=== PATIENT | male | born 1950 | race Caucasian/White ===

== ENCOUNTER 2017-09-08 19:32 | Inpatient (IN) | payer MEDICARE, BC ==
[~2017-09-08] VITALS: Ht 182.9 cm; Wt 90.8 kg
[2017-09-08 21:15] VITALS: BP 132/74; PULSE 82; RESP 18
[2017-09-08 22:00] VITALS: Ht 182.9 cm; Wt 90.8 kg
[2017-09-08] MEDS ORDERED: MAGNESIUM HYDROXIDE 30ML CUP PO PRN (23:45)
[2017-09-08] MEDS ORDERED: LACTULOSE 30ML CUP PO PRN (23:45)
[2017-09-08] MEDS ORDERED: ALPRAZOLAM 0.5 MG TAB PO PRN (23:45)
[2017-09-08] MEDS ORDERED: ALBUTEROL HFA 8 GM INHALER INH PRN (23:45)
[2017-09-08] MEDS ORDERED: BISACODYL 10 MG SUPP PR PRN (23:45)
[2017-09-09 01:34] LABS: ADD UMIC NO; UR AMORPHOUS CRYSTAL FEW /HPF (NONE SEEN); UR ASCORBIC ACID NEGATIVE (NEGATIVE); UR BILIRUBIN (Dip) NEGATIVE (NEGATIVE); UR BLOOD (Dip) NEGATIVE (NEGATIVE); UR CLARITY SLIGHTLY CLOUDY (CLEAR); UR COLOR YELLOW (YELLOW); UR GLUCOSE (Dip) NEGATIVE (NEGATIVE); UR KETONES (Dip) NEGATIVE (NEGATIVE); UR LEUKOCYTE ESTERASE (Dip) NEGATIVE Leu/ul (NEGATIVE); UR NITRITE (Dip) NEGATIVE (NEGATIVE); UR RBC 0 /HPF (0-5); UR SPECIFIC GRAVITY (Dip) 1.014 (1.003-1.030); UR SQUAMOUS EPITHELIAL CELL FEW /HPF (FEW); UR TOTAL PROTEIN (Dip) NEGATIVE (NEGATIVE); UR UROBILINOGEN (Dip) NEGATIVE (NEGATIVE)
[2017-09-09 02:00] VITALS: BP 135/75; RESP 18
[2017-09-09 07:00] VITALS: BP 121/70; RESP 18
[2017-09-09 07:34] LABS: BASOPHILS % 0.2 % (0.0-2.0); EOSINOPHILS # 0.2 10^3/ul (0.0-0.5); EOSINOPHILS % 3.7 % (0.0-7.0); HEMATOCRIT 25.7 % (42.0-52.0); HEMOGLOBIN 8.4 g/dl (14.0-18.0); LYMPHOCYTES # 0.7 10^3/ul (0.8-2.9); LYMPHOCYTES % 16.7 % (15.0-51.0); MEAN CORPUSCULAR HEMOGLOBIN 29.7 pg (29.0-33.0); MEAN CORPUSCULAR HGB CONC 32.7 g/dl (32.0-37.0); MEAN CORPUSCULAR VOLUME 90.8 fl (82.0-101.0); MEAN PLATELET VOLUME 10.6 fl (7.4-10.4); MONOCYTE # 0.3 10^3/ul (0.3-0.9); MONOCYTES % 8.5 % (0.0-11.0); NEUTROPHIL # 2.8 10^3/ul (1.6-7.5); NEUTROPHILS % 70.4 % (39.0-77.0); PLATELET COUNT 168 10^3/UL (140-415); RED BLOOD COUNT 2.83 10^6/ul (4.70-6.10); RED CELL DISTRIBUTION WIDTH 13.3 % (11.5-14.5)
[2017-09-09 07:53] LABS: ALBUMIN 2.9 g/dl (3.3-4.9); ALBUMIN/GLOBULIN RATIO 0.96; BILIRUBIN,INDIRECT 0.5 mg/dl (0-1.1); BILIRUBIN,TOTAL 0.5 mg/dl (0.2-1.3); CALCIUM 8.3 mg/dl (8.4-10.2); CREATININE 1.03 mg/dl (0.61-1.24); TOTAL PROTEIN 5.9 g/dl (6.1-8.1)
[2017-09-09] MEDS ORDERED: BENICAR PO SCH (09:00)
[2017-09-09] MEDS: DOCUSATE SODIUM 100 MG CAP PO SCH ×2 (09:17→21:00)
[2017-09-09] MEDS: FERROUS SULFATE (EC) 325 MG TAB PO SCH (09:18)
[2017-09-09] MEDS ORDERED: VILANTEROL INH SCH (11:00)
[2017-09-09] MEDS ORDERED: FLUTICASONE FUROATE INH SCH (11:00)
[2017-09-09] MEDS: LOSARTAN 50 MG TAB PO SCH (12:43)
[2017-09-09] MEDS: HYDROCHLOROTHIAZIDE 12.5 MG CAP PO SCH (12:43)
[2017-09-09] MEDS: BALSAM PERU/CASTOR OIL 60 GM TUBE TOP SCH ×2 (12:43→21:24)
--- NOTE | 2017-09-09 12:53 | CONS ---
DATE OF ADMISSION: 09/08/2017 DATE OF CONSULTATION: 09/09/2017 TYPE OF CONSULTATION: Rehabilitation post-admission physician evaluation. REHABILITATION IMPAIRMENT CATEGORY: Orthopedic disorder with lumbar spondylolisthesis and radiculop athy, status post laminectomy and fusion. ACTIVE COMORBIDITIES: 1. Bilateral rotator cuff injuries. 2. History of bilateral carpal tunnel syndrome. 3. History of left elbow surgery. 4. History of multiple left knee surgeries. 5. Hypertension. 6. Anemia. 7. Asthma. 8. Gluteal decubitus ulcer. 9. Impairments in self-care and mobility. HISTORY OF PRESENT ILLNESS: The patient is a 66-year-old gentleman with a history of multiple medi chasity comorbidities who had been noting increasing radiating back pain despite conservative measures. The patient did undergo decompressive lumbar laminectomy and fusion on 09/03/2017. His postoperati ve course has been notable for anemia requiring transfusion, and significant impairments in self-car e and mobility as compared to baseline. The patient has been cleared to transfer to the rehabilitat ion unit for comprehensive interdisciplinary rehab care. FUNCTIONAL HISTORY: Prior to recent events, the patient was independent in self-care tasks and mobi lity. Currently, patient requires minimal to moderate assist for self-care and mobility tasks. I have reviewed the preadmission screen and the patient's current functional status is consistent wi th the preadmission screen. SOCIAL HISTORY: The patient reports living at home and hopes to return there upon discharge. PAST MEDICAL HISTORY: 1. Degenerative joint disease affecting multiple joints. 2. History of bilateral rotator cuff injuries with surgery. 3. History of bilateral carpal tunnel syndrome. 4. History of left elbow surgery. 5. History of multiple left knee surgeries. 6. Hypertension. 7. Asthma. CURRENT MEDICATIONS: 1. Albuterol inhaler. 2. Ferrous sulfate 325 p.o. every day. 3. Xanax p.r.n. 4. Ultram p.r.n. ALLERGIES 1. MORPHINE. 2. DILAUDID. 3. SULFA. PHYSICAL EXAMINATION: VITAL SIGNS: The patient is currently afebrile with stable vital signs. HEENT: Extraocular motions intact. Oropharynx clear. NECK: Supple. LUNGS: Clear anteriorly. CARDIAC: S1, S2. ABDOMEN: Soft, nontender, positive bowel sounds. NEUROLOGIC: He is awake, alert, oriented x3, can follow simple 1-step commands. Cranial nerves are grossly intact. He has good strength in bilateral upper extremity and antigravity strength in bila teral lower extremity. He does have impaired dynamic balance. PLAN: The patient has been admitted for comprehensive interdisciplinary acute rehab and is anticipa mariana to tolerate 3 hours of daily therapy in divided doses for at least 5/7 days a week. The treatme nt plan will include: 1. Physical therapy to focus on bed mobility, transfers, and household ambulation with the goal of having the patient reach standby assist level. 2. Occupational therapy to focus on hygiene, grooming, dressing, bathing, and toileting activities with goal of having patient reach standby assist level. 3. Rehabilitation nursing for carryover of therapeutic interventions, the goal of continent of arun l and bladder, and the goal of pain adequately managed on oral medications. REHABILITATION BARRIER: Pain. INTERVENTION FOR BARRIER: Comprehensive interdisciplinary approach. ESTIMATED LENGTH OF STAY: 10 days. DISPOSITION GOAL: Home. I acknowledge that I performed a full physical examination on this patient within 24 hours of admiss ion to the rehabilitation unit and believe the patient is a good candidate for comprehensive interdi sciplinary rehab care and is anticipated to make reasonable goals in a reasonable period of time as outlined above. Dictated By: LIVIA DERAS/JESSICA Conf#: [id number] DID#: [id number]
[2017-09-09 20:00] VITALS: BP 123/59; RESP 18
[2017-09-09] MEDS: SENNA TAB PO SCH (21:00)
[2017-09-09] MEDS: ACETAMINOPHEN 325 MG TAB PO PRN (21:54)
[2017-09-09] MEDS ORDERED: PENDING SANTYL ORDER FOR WOUND CARE XX PRN (22:00)
[2017-09-10 02:00] VITALS: BP 127/59; RESP 18
[2017-09-10 07:30] VITALS: BP 110/71; RESP 18
[2017-09-10] MEDS ORDERED: INFLUENZA VIRUS VACCINE 0.5 ML (DISPENSING) IM* ONE (09:00)
[2017-09-10] MEDS: DOCUSATE SODIUM 100 MG CAP PO SCH ×2 (09:00→20:51)
[2017-09-10] MEDS: VILANTEROL INH SCH (09:00)
[2017-09-10] MEDS: FLUTICASONE FUROATE INH SCH (09:00)
[2017-09-10] MEDS: FERROUS SULFATE (EC) 325 MG TAB PO SCH (10:12)
[2017-09-10] MEDS: HYDROCHLOROTHIAZIDE 12.5 MG CAP PO SCH (10:21)
[2017-09-10] MEDS: LOSARTAN 50 MG TAB PO SCH (10:22)
--- NOTE | 2017-09-10 11:35 | CONS ---
Date/Time of Note Date/Time of Note DATE: 09/10/17 TIME: 11:34 Consult Date/Type/Reason Admit Date/Time Sep 08, 2017 at 20:43 Initial Consult Date Subjective Patient comfortable Objective Min assist Vital Signs Date Time Temp Pulse Resp B/P Pulse Ox O2 Delivery O2 Flow Rate FiO2 09/10/17 07:30 98.5 85 18 110/71 100 09/08/17 21:15 Room Air Intake and Output 09/09/17 09/09/17 09/10/17 15:00 23:00 07:00 Intake Total 750 ml 1200 ml 800 ml Output Total 1000 ml Balance 750 ml 200 ml 800 ml Results/Medications Result Diagram: 09/09/17 0642 09/09/17 0641 Medications Current Medications Tramadol HCl (Ultram) 50 mg Q6H PRN PO PAIN; Start 09/08/17 at 23:45 Alprazolam (Xanax) 0.5 mg Q6H PRN PO ANXIETY; Start 09/08/17 at 23:45 Ferrous Sulfate (Ferrous Sulfate (Ec)) 325 mg DAILY PO Last administered on 10:12; Admin Dose 325 MG; Start 09/09/17 at 09:00 Clonidine (Catapres) 0.1 mg BID PO Last administered on 09/09/17 21:23; Admin Dose 0.1 MG; Start 09/08/17 at 23:45 Docusate Sodium (Colace) 100 mg BID PO Last administered on 09/09/17 09:17; Admin Dose 100 MG; Start 09/09/17 at 09:00 Senna (Senokot) 1 tab HS PO ; Start 09/09/17 at 21:00 Acetaminophen (Tylenol Tab) 650 mg Q4H PRN PO PAIN Last administered on 21:54; Admin Dose 650 MG; Start 09/08/17 at 23:45 Bisacodyl (Dulcolax Supp) 10 mg DAILY PRN [place] CONSTIPATION; Start 09/08/17 at 23:45 Magnesium Hydroxide (Milk Of Mag) 30 ml BID PRN PO CONSTIPATION; Start at 23:45 Lactulose (Enulose) 20 gm DAILY PRN PO CONSTIPATION; Start 09/08/17 at 23:45 Losartan Potassium (Cozaar) 100 mg DAILY PO Last administered on 09/10/17 10: 22; Admin Dose 100 MG; Start 09/09/17 at 10:00 Hydrochlorothiazide (Hydrochlorothiazide) 12.5 mg DAILY PO Last administered on 09/10/17 10:21; Admin Dose 12.5 MG; Start 09/09/17 at 10:00 Non-Formulary Medication 1 ea Q48H INH ; Start 09/10/17 at 09:00 Miscellaneous Information (Pending [facility] Order For Wound Care) This patient watkins... PRN PRN XX WOUND CARE; Start 09/09/17 at 22:00 Assessment/Plan Additional Assessment/Plan Rehabilitation -orthopedic disorder with lumbar spondylolisthesis and radiculopathy, status post laminectomy and fusion. Continue current rehabilitative treatment plan Bilateral rotator cuff injuries. History of bilateral carpal tunnel syndrome. History of left elbow surgery. History of multiple left knee surgeries. Hypertension. Anemia. Asthma. Gluteal decubitus ulcer. LIVIA HERZOG MD Sep 10, 2017 11:35
--- NOTE | 2017-09-10 13:43 | HP ---
DATE OF ADMISSION: 09/08/2017 CHIEF COMPLAINT: Status post laminectomy, lumbar. HISTORY OF PRESENT ILLNESS: This is a 66-year-old male, retired dining service worker with past medical history of hypertension, history of asthma, history of osteoarthritis with multiple surgeries on his knees and shoulders and wrist who was admitted to an outside hospital for an L3 to S1 laminectomy and fusi on. The patient continued to have chronic lower back pain with sciatic pain and radiculopathy for m any years. The patient states his pain and symptoms started to progressively get worse. The patien t failed conservative management and as a result underwent surgical intervention for neurogenic oleg dication. The patient underwent L3 to S1 laminectomy with fusion by . Postoperatively, th e patient did receive due to blood loss. The patient, however, had a significant decline in his pre morbid state. As a result, he was transferred to [facility] for acute rehab. On my evaluation of the patient at this time, he is currently stable. Denies any fevers, chills, na usea, vomiting. The patient states his current pain is under control. PAST MEDICAL HISTORY: As stated above, history of hypertension, asthma. PAST SURGICAL HISTORY: Status post multiple surgeries on his shoulder for rotator cuff tear. The p atient is status post carpal tunnel release, status post left elbow surgery, status post left knee s urgery. FAMILY HISTORY: Noncontributory. SOCIAL HISTORY: Does not smoke, drink or do drugs. MEDICATION: Reviewed and reconciled. ALLERGIES: PLEASE SEE LIST. REVIEW OF SYSTEMS: A 14-point review of systems was performed. Pertinent positives stated in HPI, otherwise negative. PHYSICAL EXAMINATION: VITAL SIGNS: Blood pressure is 110/71, respiration 18, pulse 85, temperature 98.5. HEENT: Head is normocephalic. Pupils are reactive to light. NECK: Supple. HEART: Regular rate. LUNGS: Show diminished breath sounds at the base. ABDOMEN: Soft, nontender to palpation. No rebound, guarding. EXTREMITIES: Negative for clubbing, cyanosis, no edema. DERMATOLOGIC: No rashes. MUSCULOSKELETAL: The patient has a noted wound on his back with dressing clean, dry, intact. NEUROLOGIC: No focal deficits, although patient has some general weakness. LABORATORY DATA: From 09/09/2017 shows sodium 145, potassium 4.0, BUN 14, creatinine 1.03. White c ount 4.0, hemoglobin 11.4, hematocrit 25.7, platelet count is 168. ASSESSMENT AND PLAN: This is a 66-year-old male who presents with: 1. Chronic back pain with radiculopathy. The patient is status post L3 to S1 laminectomy and fusio n. The patient is currently stable. Plan at this point is for patient to continue physical therapy , continue occupational therapy, continue pain control. We will monitor closely. 2. Hypertension. Continue current blood pressure regimen with Cozaar and hydrochlorothiazide. 3. Asthma. The patient is currently well controlled. We will give nebulized therapy as needed. 4. Anxiety disorder. Continue Xanax. 5. History of arthritis. Continue physical therapy. Continue pain control. 6. Anemia in part due to operative blood loss. Continue to monitor hemoglobin and hematocrit level s. 7. Mild leukopenia. Continue to monitor. 8. Hypernatremia. We will continue to encourage free water intake. 9. Gastrointestinal and deep venous thrombosis prophylaxis. Continue proton pump inhibitor and seq uential leg squeezers. Please note I spent up to 25 minutes of alao-vq-evll time with the patient. The patient is FULL COD E. Dictated By: SILVERIO ROGERS DO NR/NTS Conf#: [id number] DID#: [id number] CC: LIVIA HERZOG MD;*EndCC*
[2017-09-10 14:00] VITALS: BP 108/61; RESP 18
[2017-09-10 15:21] LABS: IRON 32 ug/dl (35-150)
[2017-09-10 15:31] LABS: TOTAL IRON BINDING CAPACITY 207 ug/dl (241-421)
[2017-09-10] MEDS: ACETAMINOPHEN 325 MG TAB PO PRN (18:43)
[2017-09-10] MEDS: BALSAM PERU/CASTOR OIL 60 GM TUBE TOP SCH ×2 (18:45→20:53)
[2017-09-10 20:00] VITALS: BP 133/70; RESP 18
[2017-09-10] MEDS: FAMOTIDINE 20 MG TAB PO SCH (20:48)
[2017-09-10] MEDS: SENNA TAB PO SCH (20:50)
[2017-09-11 02:00] VITALS: BP 127/72; RESP 18
[2017-09-11] MEDS: ACETAMINOPHEN 325 MG TAB PO PRN ×2 (06:58→22:41)
[2017-09-11 07:25] LABS: BASOPHILS % 0.4 % (0.0-2.0); EOSINOPHILS # 0.2 10^3/ul (0.0-0.5); EOSINOPHILS % 4.2 % (0.0-7.0); HEMATOCRIT 31.2 % (42.0-52.0); HEMOGLOBIN 10.2 g/dl (14.0-18.0); MEAN CORPUSCULAR HEMOGLOBIN 29.7 pg (29.0-33.0); MEAN CORPUSCULAR HGB CONC 32.7 g/dl (32.0-37.0); MEAN PLATELET VOLUME 10.2 fl (7.4-10.4); MONOCYTE # 0.4 10^3/ul (0.3-0.9); MONOCYTES % 6.4 % (0.0-11.0); NEUTROPHIL # 3.8 10^3/ul (1.6-7.5); NEUTROPHILS % 69.1 % (39.0-77.0); PLATELET COUNT 297 10^3/UL (140-415); RED BLOOD COUNT 3.43 10^6/ul (4.70-6.10); RED CELL DISTRIBUTION WIDTH 13.2 % (11.5-14.5); WHITE BLOOD COUNT 5.5 10^3/ul (4.8-10.8)
[2017-09-11 07:30] VITALS: BP 98/63; RESP 18
[2017-09-11 07:49] LABS: CALCIUM 9.1 mg/dl (8.4-10.2); CREATININE 0.95 mg/dl (0.61-1.24); MAGNESIUM 2.2 mg/dl (1.7-2.5); PHOSPHORUS 3.5 mg/dl (2.5-4.9); POTASSIUM 4.3 mmol/L (3.5-5.1)
--- NOTE | 2017-09-11 08:18 | CONS ---
Date/Time of Note Date/Time of Note DATE: 09/11/17 TIME: 08:17 Consult Date/Type/Reason Admit Date/Time Sep 08, 2017 at 20:43 Subjective Improving Objective pulm-cta min/ mod assist Vital Signs Date Time Temp Pulse Resp B/P Pulse Ox O2 Delivery O2 Flow Rate FiO2 09/11/17 02:00 98.5 84 18 127/72 95 09/08/17 21:15 Room Air Intake and Output 09/10/17 09/10/17 09/11/17 15:00 23:00 07:00 Intake Total 1220 ml 800 ml Output Total 300 ml Balance 920 ml 800 ml Results/Medications Result Diagram: 09/11/1762609/11/17626 Results 24 hrs Laboratory Tests Test 09/10/17 13:59 09/11/17 06:27 Iron Level 32 L Total Iron Binding Capacity 207 L Percent Iron Saturation 15 L Ferritin 608.0 H White Blood Count 5.5 # Red Blood Count 3.43 #L Hemoglobin 10.2 #L Hematocrit 31.2 #L Mean Corpuscular Volume 91.0 Mean Corpuscular Hemoglobin 29.7 Mean Corpuscular Hemoglobin Concent 32.7 Red Cell Distribution Width 13.2 Platelet Count 297 # Mean Platelet Volume 10.2 Neutrophils % 69.1 Lymphocytes % 19.0 Monocytes % 6.4 Eosinophils % 4.2 Basophils % 0.4 Nucleated Red Blood Cells % 0.0 Neutrophils # 3.8 Lymphocytes # 1.0 Monocytes # 0.4 Eosinophils # 0.2 Basophils # 0.0 Nucleated Red Blood Cells # 0.0 Sodium Level 145 H Potassium Level 4.3 Chloride Level 106 Carbon Dioxide Level 28 Anion Gap 15 # Blood Urea Nitrogen 16 Creatinine 0.95 Glucose Level 108 Calcium Level 9.1 Phosphorus Level 3.5 Magnesium Level 2.2 Medications Current Medications Tramadol HCl (Ultram) 50 mg Q6H PRN PO PAIN; Start 09/08/17 at 23:45 Alprazolam (Xanax) 0.5 mg Q6H PRN PO ANXIETY; Start 09/08/17 at 23:45 Ferrous Sulfate (Ferrous Sulfate (Ec)) 325 mg DAILY PO Last administered on t 10:12; Admin Dose 325 MG; Start 09/09/17 at 09:00 Clonidine (Catapres) 0.1 mg BID PO Last administered on 09/10/17 20:50; Admin Dose 0.1 MG; Start 09/08/17 at 23:45 Docusate Sodium (Colace) 100 mg BID PO Last administered on 09/09/17 09:17; Admin Dose 100 MG; Start 09/09/17 at 09:00 Senna (Senokot) 1 tab HS PO ; Start 09/09/17 at 21:00 Acetaminophen (Tylenol Tab) 650 mg Q4H PRN PO PAIN Last administered on 06:58; Admin Dose 650 MG; Start 09/08/17 at 23:45 Bisacodyl (Dulcolax Supp) 10 mg DAILY PRN [place] CONSTIPATION; Start 09/08/17 at 23:45 Magnesium Hydroxide (Milk Of Mag) 30 ml BID PRN PO CONSTIPATION; Start at 23:45 Lactulose (Enulose) 20 gm DAILY PRN PO CONSTIPATION; Start 09/08/17 at 23:45 Losartan Potassium (Cozaar) 100 mg DAILY PO Last administered on 09/10/17 10: 22; Admin Dose 100 MG; Start 09/09/17 at 10:00 Hydrochlorothiazide (Hydrochlorothiazide) 12.5 mg DAILY PO Last administered on 09/10/17 10:21; Admin Dose 12.5 MG; Start 09/09/17 at 10:00 Non-Formulary Medication 1 ea Q48H INH Last administered on 09/10/17 09:00; Admin Dose 1 EA; Start 09/10/17 at 09:00 Miscellaneous Information (Pending [facility] Order For Wound Care) This patient watkins... PRN PRN XX WOUND CARE; Start 09/09/17 at 22:00 Famotidine (Pepcid) 20 mg BID PO Last administered on 09/10/17 20:48; Admin Dose 20 MG; Start 09/10/17 at 21:00 Assessment/Plan Additional Assessment/Plan Rehabilitation -orthopedic disorder with lumbar spondylolisthesis and radiculopathy, status post laminectomy and fusion. Continue current program, and adjust pain meds as needed Bilateral rotator cuff injuries. History of bilateral carpal tunnel syndrome. History of left elbow surgery. History of multiple left knee surgeries. Hypertension. Anemia. Asthma. Gluteal decubitus ulcer-wound care LIVIA HERZOG MD 18, 2017 08:17
[2017-09-11] MEDS: DOCUSATE SODIUM 100 MG CAP PO SCH ×2 (09:00→20:29)
[2017-09-11] MEDS: FAMOTIDINE 20 MG TAB PO SCH ×2 (09:07→20:25)
[2017-09-11] MEDS: FERROUS SULFATE (EC) 325 MG TAB PO SCH (09:07)
[2017-09-11] MEDS: LOSARTAN 50 MG TAB PO SCH (09:09)
[2017-09-11] MEDS: HYDROCHLOROTHIAZIDE 12.5 MG CAP PO SCH (09:09)
[2017-09-11] MEDS: BALSAM PERU/CASTOR OIL 60 GM TUBE TOP SCH ×2 (09:10→20:23)
--- NOTE | 2017-09-11 11:19 | PN ---
Date/Time of Note Date/Time of Note DATE: 09/11/17 TIME: :18 Assessment/Plan VTE Prophylaxis VTE Prophylaxis Intervention: other Lines/Catheters Urinary Cath still in place: No Assessment/Plan Chief Complaint/Hosp Course This is a 66-year-old male, retired quality control tech raw materials with past medical history of hypertension, history of asthma, history of osteoarthritis with multiple surgeries on his knees and shoulders and wrist who was admitted to an outside hospital for an L3 to S1 laminectomy and fusion. The patient continued to have chronic lower back pain with sciatic pain and radiculopathy for many years. The patient states his pain and symptoms started to progressively get worse. The patient failed conservative management and as a result underwent surgical intervention for neurogenic claudication. The patient underwent L3 to S1 laminectomy with fusion by Dr. Cuenca. Postoperatively, the patient did receive due to blood loss. The patient, however, had a significant decline in his premorbid state. As a result, he was transferred to [facility] for acute rehab. On my evaluation of the patient at this time, he is currently stable. Denies any fevers, chills, nausea, vomiting. The patient states his current pain is under control. PHYSICAL EXAMINATION: HEENT: Head is normocephalic. Pupils are reactive to light. NECK: Supple. HEART: Regular rate. LUNGS: Show diminished breath sounds at the base. ABDOMEN: Soft, nontender to palpation. No rebound, guarding. EXTREMITIES: Negative for clubbing, cyanosis, no edema. DERMATOLOGIC: No rashes. MUSCULOSKELETAL: The patient has a noted wound on his back with dressing clean , dry, intact. NEUROLOGIC: No focal deficits, although patient has some general weakness. ASSESSMENT AND PLAN: This is a 66-year-old male who presents with: 1. Chronic back pain with radiculopathy. The patient is status post L3 to S1 laminectomy and fusion. The patient is currently stable. Plan at this point is for patient to continue physical therapy, continue occupational therapy, continue pain control. We will monitor closely. 2. Hypertension. Continue current blood pressure regimen with Cozaar and hydrochlorothiazide. 3. Asthma. The patient is currently well controlled. We will give nebulized therapy as needed. 4. Anxiety disorder. Continue Xanax. 5. History of arthritis. Continue physical therapy. Continue pain control. 6. Anemia in part due to operative blood loss. Continue to monitor hemoglobin and hematocrit levels. 7. Mild leukopenia. Continue to monitor. 8. Hypernatremia. We will continue to encourage free water intake. 9. Gastrointestinal and deep venous thrombosis prophylaxis. Continue proton pump inhibitor and sequential leg squeezers. Problems: Exam/Review of Systems Vital Signs Vitals Vital Signs Date Time Temp Pulse Resp B/P Pulse Ox O2 Delivery O2 Flow Rate FiO2 09/11/17 07:30 97.3 76 18 98/63 99 09/08/17 21:15 Room Air Intake and Output 09/10/17 09/10/17 09/11/17 15:00 23:00 07:00 Intake Total 1220 ml 800 ml Output Total 300 ml Balance 920 ml 800 ml Results Result Diagram: 09/11/1727 09/11/17626 Results 24 hrs Laboratory Tests Test 09/10/17 13:59 09/11/17 06:27 Iron Level 32 L Total Iron Binding Capacity 207 L Percent Iron Saturation 15 L Ferritin 608.0 H White Blood Count 5.5 # Red Blood Count 3.43 #L Hemoglobin 10.2 #L Hematocrit 31.2 #L Mean Corpuscular Volume 91.0 Mean Corpuscular Hemoglobin 29.7 Mean Corpuscular Hemoglobin Concent 32.7 Red Cell Distribution Width 13.2 Platelet Count 297 # Mean Platelet Volume 10.2 Neutrophils % 69.1 Lymphocytes % 19.0 Monocytes % 6.4 Eosinophils % 4.2 Basophils % 0.4 Nucleated Red Blood Cells % 0.0 Neutrophils # 3.8 Lymphocytes # 1.0 Monocytes # 0.4 Eosinophils # 0.2 Basophils # 0.0 Nucleated Red Blood Cells # 0.0 Sodium Level 145 H Potassium Level 4.3 Chloride Level 106 Carbon Dioxide Level 28 Anion Gap 15 # Blood Urea Nitrogen 16 Creatinine 0.95 Glucose Level 108 Calcium Level 9.1 Phosphorus Level 3.5 Magnesium Level 2.2 Medications Medications Current Medications Tramadol HCl (Ultram) 50 mg Q6H PRN PO PAIN; Start 09/08/17 at 23:45 Alprazolam (Xanax) 0.5 mg Q6H PRN PO ANXIETY; Start 09/08/17 at 23:45 Ferrous Sulfate (Ferrous Sulfate (Ec)) 325 mg DAILY PO Last administered on t 09:07; Admin Dose 325 MG; Start 09/09/17 at 09:00 Clonidine (Catapres) 0.1 mg BID PO Last administered on 09/11/17 09:08; Admin Dose 0.1 MG; Start 09/08/17 at 23:45 Docusate Sodium (Colace) 100 mg BID PO Last administered on 09/09/17 09:17; Admin Dose 100 MG; Start 09/09/17 at 09:00 Senna (Senokot) 1 tab HS PO ; Start 09/09/17 at 21:00 Acetaminophen (Tylenol Tab) 650 mg Q4H PRN PO PAIN Last administered on 06:58; Admin Dose 650 MG; Start 09/08/17 at 23:45 Bisacodyl (Dulcolax Supp) 10 mg DAILY PRN [place] CONSTIPATION; Start 09/08/17 at 23:45 Magnesium Hydroxide (Milk Of Mag) 30 ml BID PRN PO CONSTIPATION; Start at 23:45 Lactulose (Enulose) 20 gm DAILY PRN PO CONSTIPATION; Start 09/08/17 at 23:45 Losartan Potassium (Cozaar) 100 mg DAILY PO Last administered on 09/11/17 09: 09; Admin Dose 100 MG; Start 09/09/17 at 10:00 Hydrochlorothiazide (Hydrochlorothiazide) 12.5 mg DAILY PO Last administered on 09/11/17 09:09; Admin Dose 12.5 MG; Start 09/09/17 at 10:00 Non-Formulary Medication 1 ea Q48H INH Last administered on 09/10/17 09:00; Admin Dose 1 EA; Start 09/10/17 at 09:00 Miscellaneous Information (Pending [facility] Order For Wound Care) This patient watkins... PRN PRN XX WOUND CARE; Start 09/09/17 at 22:00 Famotidine (Pepcid) 20 mg BID PO Last administered on 09/11/17 09:07; Admin Dose 20 MG; Start 09/10/17 at 21:00 SPRING LOPEZ DO Sep 11, 2017 11:19
[2017-09-11 14:00] VITALS: BP 109/61; RESP 18
[2017-09-11 19:38] VITALS: BP 123/73; RESP 18
[2017-09-11] MEDS: SENNA TAB PO SCH (20:29)
[2017-09-11] MEDS: ZOLPIDEM 5 MG TAB PO PRN (22:41)
[2017-09-12 02:37] VITALS: BP 97/55; RESP 19
[2017-09-12 07:00] VITALS: BP 116/72; RESP 18
[2017-09-12] MEDS: FLUTICASONE FUROATE INH SCH (09:00)
[2017-09-12] MEDS: VILANTEROL INH SCH (09:00)
[2017-09-12] MEDS: ACETAMINOPHEN 325 MG TAB PO PRN ×3 (09:25→22:33)
[2017-09-12] MEDS: DOCUSATE SODIUM 100 MG CAP PO SCH ×2 (09:25→20:25)
[2017-09-12] MEDS: FAMOTIDINE 20 MG TAB PO SCH ×2 (09:25→20:17)
[2017-09-12] MEDS: FERROUS SULFATE (EC) 325 MG TAB PO SCH (09:25)
[2017-09-12] MEDS: HYDROCHLOROTHIAZIDE 12.5 MG CAP PO SCH (09:26)
[2017-09-12] MEDS: LOSARTAN 50 MG TAB PO SCH (09:26)
[2017-09-12] MEDS: BALSAM PERU/CASTOR OIL 60 GM TUBE TOP SCH ×2 (09:27→20:25)
--- NOTE | 2017-09-12 10:13 | PN ---
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 The patient continued to have chronic lower back pain with sciatic pain and radiculopathy for many years. The patient states his pain and symptoms started to progressively get worse. The patient failed conservative management and as a result underwent surgical intervention for neurogenic claudication. The patient underwent L3 to S1 laminectomy with fusion by Dr. Cuenca. Postoperatively, the patient did receive due to blood loss. The patient, however, had a significant decline in his premorbid state. As a result, he was transferred to [facility] for acute rehab. On my evaluation of the patient at this time, he is currently stable. Denies any fevers, chills, nausea, vomiting. The patient states his current pain is under control. PHYSICAL EXAMINATION: HEENT: Head is normocephalic. Pupils are reactive to light. NECK: Supple. HEART: Regular rate. LUNGS: Show diminished breath sounds at the base. ABDOMEN: Soft, nontender to palpation. No rebound, guarding. EXTREMITIES: Negative for clubbing, cyanosis, no edema. DERMATOLOGIC: No rashes. MUSCULOSKELETAL: The patient has a noted wound on his back with dressing clean , dry, intact. NEUROLOGIC: No focal deficits, although patient has some general weakness. ASSESSMENT AND PLAN: This is a 66-year-old male who presents with: 1. Chronic back pain with radiculopathy. The patient is status post L3 to S1 laminectomy and fusion. The patient is currently stable. Plan at this point is for patient to continue physical therapy, continue occupational therapy, continue pain control. We will monitor closely. 2. Hypertension. Continue current blood pressure regimen with Cozaar and hydrochlorothiazide. 3. Asthma. The patient is currently well controlled. We will give nebulized therapy as needed. 4. Anxiety disorder. Continue Xanax. 5. History of arthritis. Continue physical therapy. Continue pain control. 6. Anemia in part due to operative blood loss. Continue to monitor hemoglobin and hematocrit levels. 7. Mild leukopenia. Continue to monitor. 8. Hypernatremia. We will continue to encourage free water intake. 9. Gastrointestinal and deep venous thrombosis prophylaxis. Continue proton pump inhibitor and sequential leg squeezers. Problems: Exam/Review of Systems Vital Signs Vitals Vital Signs Date Time Temp Pulse Resp B/P Pulse Ox O2 Delivery O2 Flow Rate FiO2 09/12/17 02:37 97.9 79 19 97/55 96 09/08/17 21:15 Room Air Intake and Output 09/11/17 09/11/17 09/12/17 15:00 23:00 07:00 Intake Total 1480 ml Output Total 400 ml Balance 1080 ml Results Result Diagram: 09/11/1762609/11/17626 Medications Medications Current Medications Tramadol HCl (Ultram) 50 mg Q6H PRN PO PAIN; Start 09/08/17 at 23:45 Alprazolam (Xanax) 0.5 mg Q6H PRN PO ANXIETY; Start 09/08/17 at 23:45 Ferrous Sulfate (Ferrous Sulfate (Ec)) 325 mg DAILY PO Last administered on 09:25; Admin Dose 325 MG; Start 09/09/17 at 09:00 Clonidine (Catapres) 0.1 mg BID PO Last administered on 09/12/17 09:24; Admin Dose 0.1 MG; Start 09/08/17 at 23:45 Docusate Sodium (Colace) 100 mg BID PO Last administered on 09/12/17 09:25; Admin Dose 100 MG; Start 09/09/17 at 09:00 Senna (Senokot) 1 tab HS PO ; Start 09/09/17 at 21:00 Acetaminophen (Tylenol Tab) 650 mg Q4H PRN PO PAIN Last administered on 09:25; Admin Dose 650 MG; Start 09/08/17 at 23:45 Bisacodyl (Dulcolax Supp) 10 mg DAILY PRN [place] CONSTIPATION; Start 09/08/17 at 23:45 Magnesium Hydroxide (Milk Of Mag) 30 ml BID PRN PO CONSTIPATION; Start at 23:45 Lactulose (Enulose) 20 gm DAILY PRN PO CONSTIPATION; Start 09/08/17 at 23:45 Losartan Potassium (Cozaar) 100 mg DAILY PO Last administered on 09/12/17 09: 26; Admin Dose 100 MG; Start 09/09/17 at 10:00 Hydrochlorothiazide (Hydrochlorothiazide) 12.5 mg DAILY PO Last administered on 09/12/17 09:26; Admin Dose 12.5 MG; Start 09/09/17 at 10:00 Non-Formulary Medication 1 ea Q48H INH Last administered on 09/10/17 09:00; Admin Dose 1 EA; Start 09/10/17 at 09:00 [facility] This patient watkins... PRN PRN XX WOUND CARE; Start 09/09/17 at 22:00 Famotidine (Pepcid) 20 mg BID PO Last administered on 09/12/17 09:25; Admin Dose 20 MG; Start 09/10/17 at 21:00 Zolpidem Tartrate (Ambien) 5 mg HS PRN PO INSOMNIA Last administered on 22:41; Admin Dose 5 MG; Start 09/11/17 at 20:00 SPRING LOPEZ DO Sep 12, 2017 10:13
[2017-09-12 14:00] VITALS: BP 107/58; RESP 18
[2017-09-12 20:00] VITALS: BP 101/63; RESP 18
[2017-09-12] MEDS: SENNA TAB PO SCH (20:25)
[2017-09-12] MEDS: ZOLPIDEM 5 MG TAB PO PRN (22:33)
[2017-09-13 04:28] VITALS: BP 115/58; PULSE 80; RESP 18
[2017-09-13] MEDS: ACETAMINOPHEN 325 MG TAB PO PRN ×2 (05:49→11:46)
[2017-09-13 07:00] VITALS: BP 128/74; RESP 18
[2017-09-13] MEDS: BALSAM PERU/CASTOR OIL 60 GM TUBE TOP SCH ×2 (09:30→21:00)
[2017-09-13] MEDS: LIDOCAINE 5% PATCH TD SCH (09:30)
[2017-09-13] MEDS: LOSARTAN 50 MG TAB PO SCH (09:31)
[2017-09-13] MEDS: FERROUS SULFATE (EC) 325 MG TAB PO SCH (09:31)
[2017-09-13] MEDS: HYDROCHLOROTHIAZIDE 12.5 MG CAP PO SCH (09:31)
[2017-09-13] MEDS: FAMOTIDINE 20 MG TAB PO SCH ×2 (09:31→20:58)
[2017-09-13] MEDS: DOCUSATE SODIUM 100 MG CAP PO SCH ×2 (09:32→21:00)
--- NOTE | 2017-09-13 10:13 | PN ---
DATE: 09/13/2017 SUBJECTIVE: The patient is complaining about pain in his lower back. The PATIENT IS ALLERGIC TO MU LTIPLE OPIATES and would like to try a pain patch. No other events noted. OBJECTIVE: VITAL SIGNS: Blood pressure is 120/74, respirations 18, pulse 85, temperature 98.1. HEENT: Head is normocephalic. NECK: Supple. HEART: Regular rate. LUNGS: Show diminished breath sounds at the base. ABDOMEN: Soft, nontender to palpation, no rebound or guarding. EXTREMITIES: Negative for clubbing, cyanosis, no edema. DERMATOLOGIC: No rashes. MUSCULOSKELETAL: No joint effusions. NEUROLOGIC: No change in exam. MEDICATIONS: The patient's medications have been reviewed. LABORATORY DATA: Has been reviewed. No new labs. ASSESSMENT AND PLAN: 1. Chronic back pain with radiculopathy. The patient is status post L3 to S1 laminectomy and fusio n. The patient is currently stable. Continue physical therapy, occupational therapy. Continue jo ann n control. 2. Hypertension. Continue current blood pressure regimen. 3. Asthma, well controlled. Continue nebulizers as needed. 4. Anxiety disorder. Continue Xanax. 5. History of arthritis. Continue physical therapy. 6. Anemia. Patient has iron deficiency. Continue ferrous sulfate. Hemoglobin level has been stab le. 7. Leukopenia, improved. 8. Hypernatremia. Continue to encourage free water intake. 9. Gastrointestinal and deep thrombosis prophylaxis. Continue proton pump inhibitor and sequential leg squeezers. 10. Pain syndrome. We will start patient on lidocaine patch. Dictated By: SILVERIO MUNSON/JESSICA Conf#: [id number] DID#: [id number] CC: LIVIA HERZOG MD;*EndCC*
--- NOTE | 2017-09-13 12:44 | CONS ---
Date/Time of Note Date/Time of Note DATE: 09/13/17 TIME: 12:44 Consult Date/Type/Reason Admit Date/Time Sep 08, 2017 at 20:43 Objective Vital Signs Date Time Temp Pulse Resp B/P Pulse Ox O2 Delivery O2 Flow Rate FiO2 09/13/17 07:00 98.1 85 18 128/74 100 09/13/17 04:28 Room Air Intake and Output 09/12/17 09/12/17 09/13/17 14:59 22:59 06:59 Intake Total 2400 ml Output Total 2000 ml 400 ml Balance 400 ml -400 ml INTERDISCIPLINARY TEAM CONFERENCE BOWEL- Cont BLADDER-Cont SKIN- intact OT- DRESSING-min BATHING-min TOILETING-min PT- BED MOBILITY-min TRANSFERS-min/mod AMBULATION-sba/cga 150 feet A/P- Interdisciplinary team conference held today. Please see interdisciplinary sheet. Working toward d.c. on 09/20 with post discharge follow up of physical therapy, occupational therapy. Results/Medications Result Diagram: 09/11/1762609/11/17626 Medications Current Medications Tramadol HCl (Ultram) 50 mg Q6H PRN PO PAIN; Start 09/08/17 at 23:45 Alprazolam (Xanax) 0.5 mg Q6H PRN PO ANXIETY; Start 09/08/17 at 23:45 Ferrous Sulfate (Ferrous Sulfate (Ec)) 325 mg DAILY PO Last administered on 09:31; Admin Dose 325 MG; Start 09/09/17 at 09:00 Clonidine (Catapres) 0.1 mg BID PO Last administered on 09/13/17 09:32; Admin Dose 0.1 MG; Start 09/08/17 at 23:45 Docusate Sodium (Colace) 100 mg BID PO Last administered on 09/13/17 09:32; Admin Dose 100 MG; Start 09/09/17 at 09:00 Senna (Senokot) 1 tab HS PO ; Start 09/09/17 at 21:00 Acetaminophen (Tylenol Tab) 650 mg Q4H PRN PO PAIN Last administered on 11:46; Admin Dose 650 MG; Start 09/08/17 at 23:45 Bisacodyl (Dulcolax Supp) 10 mg DAILY PRN [place] CONSTIPATION; Start 09/08/17 at 23:45 Magnesium Hydroxide (Milk Of Mag) 30 ml BID PRN PO CONSTIPATION; Start at 23:45 Lactulose (Enulose) 20 gm DAILY PRN PO CONSTIPATION; Start 09/08/17 at 23:45 Losartan Potassium (Cozaar) 100 mg DAILY PO Last administered on 09/13/17 09: 31; Admin Dose 100 MG; Start 09/09/17 at 10:00 Hydrochlorothiazide (Hydrochlorothiazide) 12.5 mg DAILY PO Last administered on 09/13/17 09:31; Admin Dose 12.5 MG; Start 09/09/17 at 10:00 Non-Formulary Medication 1 ea Q48H INH Last administered on 09/10/17 09:00; Admin Dose 1 EA; Start 09/10/17 at 09:00 Miscellaneous Information (Pending [facility] Order For Wound Care) This patient watkins... PRN PRN XX WOUND CARE; Start 09/09/17 at 22:00 Famotidine (Pepcid) 20 mg BID PO Last administered on 09/13/17 09:31; Admin Dose 20 MG; Start 09/10/17 at 21:00 Zolpidem Tartrate (Ambien) 5 mg HS PRN PO INSOMNIA Last administered on 22:33; Admin Dose 5 MG; Start 09/11/17 at 20:00 Lidocaine (Lidoderm) 1 patch DAILY TD Last administered on 09/13/17 09:30; Admin Dose 1 PATCH; Start 09/13/17 at 09:00 LIVIA HERZOG MD Sep 13, 2017 12:44
[2017-09-13 14:00] VITALS: BP 108/57; RESP 18
[2017-09-13 20:00] VITALS: BP 102/56; RESP 18
[2017-09-13] MEDS ORDERED: INFLUENZA VIRUS VACCINE 0.5 ML SYG IM* ONE (20:00)
[2017-09-13] MEDS: GABAPENTIN 100 MG CAP PO SCH (20:57)
[2017-09-13] MEDS: BACLOFEN 10 MG TAB PO SCH (20:58)
[2017-09-13] MEDS: SENNA TAB PO SCH (21:00)
[2017-09-13 21:07] VITALS: BP 125/80; PULSE 87
[2017-09-13] MEDS: ZOLPIDEM 5 MG TAB PO PRN (22:59)
[2017-09-14 02:00] VITALS: BP 128/81; RESP 18
[2017-09-14 08:30] VITALS: BP 115/64; RESP 18
[2017-09-14] MEDS: DOCUSATE SODIUM 100 MG CAP PO SCH ×2 (09:00→20:19)
[2017-09-14] MEDS: FLUTICASONE FUROATE INH SCH (09:00)
[2017-09-14] MEDS: VILANTEROL INH SCH (09:00)
[2017-09-14] MEDS: BALSAM PERU/CASTOR OIL 60 GM TUBE TOP SCH ×3 (09:00→21:00)
--- NOTE | 2017-09-14 09:51 | PN ---
DATE: 09/14/2017 SUBJECTIVE: The patient continues to have back pain, radicular pain, although slowly improving. No other events noted. OBJECTIVE: VITAL SIGNS: Blood pressure 120/76, respirations 16, pulse 72, temperature 98.2. HEENT: Head is normocephalic. NECK: Supple. HEART: Regular rate. LUNGS: Show diminished breath sounds at the base. ABDOMEN: Soft, nontender to palpation. No rebound or guarding. EXTREMITIES: Negative for clubbing, cyanosis. No edema. DERMATOLOGIC: No rashes. MUSCULOSKELETAL: No joint effusions. NEUROLOGIC: No change in exam. MEDICATIONS: Have been reviewed. LABORATORY DATA: Has been reviewed. No new labs. ASSESSMENT AND PLAN: 1. Chronic back pain with radiculopathy. The patient is currently stable. Continue physical thera py and occupational therapy. The patient was started on Neurontin, continue pain control for rehabi litation. 2. Hypertension. Continue current blood pressure regimen. 3. Asthma, well controlled. 4. Anxiety disorder. Continue Xanax. 5. History of arthritis. Continue physical therapy. 6. Anemia. Monitor hemoglobin and hematocrit levels. 7. Hyponatremia. Continue current free water intake. 8. Chronic pain syndrome. Continue Neurontin, lidocaine patch. 9. Gastrointestinal and deep venous thrombosis prophylaxis. Dictated By: SILVERIO MUNSON/JESSICA Conf#: [id number] DID#: [id number]
[2017-09-14] MEDS: HYDROCHLOROTHIAZIDE 12.5 MG CAP PO SCH (10:36)
[2017-09-14] MEDS: ACETAMINOPHEN 325 MG TAB PO PRN (10:36)
[2017-09-14] MEDS: FERROUS SULFATE (EC) 325 MG TAB PO SCH (10:36)
[2017-09-14] MEDS: LOSARTAN 50 MG TAB PO SCH (10:37)
[2017-09-14] MEDS: GABAPENTIN 100 MG CAP PO SCH ×3 (10:37→20:18)
[2017-09-14] MEDS: BACLOFEN 10 MG TAB PO SCH ×2 (10:37→20:18)
[2017-09-14] MEDS: FAMOTIDINE 20 MG TAB PO SCH ×2 (10:37→20:18)
[2017-09-14] MEDS: LIDOCAINE 5% PATCH TD SCH (10:39)
--- NOTE | 2017-09-14 10:47 | CONS ---
Date/Time of Note Date/Time of Note DATE: 09/14/17 TIME: 10:46 Consult Date/Type/Reason Admit Date/Time Sep 08, 2017 at 20:43 Subjective Patient reports he finally got a good night sleep. His pain is improving Objective Lungs clear abdomen soft Contact-guard assist ambulation Vital Signs Date Time Temp Pulse Resp B/P Pulse Ox O2 Delivery O2 Flow Rate FiO2 09/14/17 02:00 97.8 93 18 128/81 98 09/13/17 04:28 Room Air Intake and Output 09/13/17 09/13/17 09/14/17 15:00 23:00 07:00 Intake Total 2400 ml 400 ml Output Total 1700 ml 1050 ml Balance 700 ml -650 ml Results/Medications Result Diagram: 09/11/1762609/11/17626 Medications Current Medications Tramadol HCl (Ultram) 50 mg Q6H PRN PO PAIN; Start 09/08/17 at 23:45 Alprazolam (Xanax) 0.5 mg Q6H PRN PO ANXIETY; Start 09/08/17 at 23:45 Ferrous Sulfate (Ferrous Sulfate (Ec)) 325 mg DAILY PO Last administered on 10:36; Admin Dose 325 MG; Start 09/09/17 at 09:00 Clonidine (Catapres) 0.1 mg BID PO Last administered on 09/14/17 10:38; Admin Dose 0.1 MG; Start 09/08/17 at 23:45 Docusate Sodium (Colace) 100 mg BID PO Last administered on 09/13/17 09:32; Admin Dose 100 MG; Start 09/09/17 at 09:00 Senna (Senokot) 1 tab HS PO ; Start 09/09/17 at 21:00 Acetaminophen (Tylenol Tab) 650 mg Q4H PRN PO PAIN Last administered on 10:36; Admin Dose 650 MG; Start 09/08/17 at 23:45 Bisacodyl (Dulcolax Supp) 10 mg DAILY PRN [place] CONSTIPATION; Start 09/08/17 at 23:45 Magnesium Hydroxide (Milk Of Mag) 30 ml BID PRN PO CONSTIPATION; Start at 23:45 Lactulose (Enulose) 20 gm DAILY PRN PO CONSTIPATION; Start 09/08/17 at 23:45 Losartan Potassium (Cozaar) 100 mg DAILY PO Last administered on 09/14/17 10: 37; Admin Dose 100 MG; Start 09/09/17 at 10:00 Hydrochlorothiazide (Hydrochlorothiazide) 12.5 mg DAILY PO Last administered on 09/14/17 10:36; Admin Dose 12.5 MG; Start 09/09/17 at 10:00 Non-Formulary Medication 1 ea Q48H INH Last administered on 09/10/17 09:00; Admin Dose 1 EA; Start 09/10/17 at 09:00 Miscellaneous Information (Pending [facility] Order For Wound Care) This patient watkins... PRN PRN XX WOUND CARE; Start 09/09/17 at 22:00 Famotidine (Pepcid) 20 mg BID PO Last administered on 09/14/17 10:37; Admin Dose 20 MG; Start 09/10/17 at 21:00 Zolpidem Tartrate (Ambien) 5 mg HS PRN PO INSOMNIA Last administered on 22:59; Admin Dose 5 MG; Start 09/11/17 at 20:00 Lidocaine (Lidoderm) 1 patch DAILY TD Last administered on 09/14/17 10:39; Admin Dose 1 PATCH; Start 09/13/17 at 09:00 Gabapentin (Neurontin) 100 mg TID PO Last administered on 09/14/17 10:37; Admin Dose 100 MG; Start 09/13/17 at 21:00 Baclofen (Lioresal) 10 mg BID PO Last administered on 09/14/17 10:37; Admin Dose 10 MG; Start 09/13/17 at 21:00 Assessment/Plan Additional Assessment/Plan Rehabilitation -orthopedic disorder with lumbar spondylolisthesis and radiculopathy, status post laminectomy and fusion. Continue treatment plan, pain improving Bilateral rotator cuff injuries. History of bilateral carpal tunnel syndrome. History of left elbow surgery. History of multiple left knee surgeries. Hypertension. Anemia. Asthma. Gluteal decubitus ulcer-improved LIVIA HERZOG MD Sep 14, 2017 10:47
[2017-09-14 20:00] VITALS: BP 113/56; RESP 18
[2017-09-14] MEDS: traMADol 50 MG TAB PO PRN (20:18)
[2017-09-14] MEDS: SENNA TAB PO SCH (20:19)
[2017-09-15 02:00] VITALS: BP 100/59; RESP 18
[2017-09-15 07:30] VITALS: BP 117/72; RESP 18
[2017-09-15] MEDS: BALSAM PERU/CASTOR OIL 60 GM TUBE TOP SCH ×2 (09:00→21:00)
[2017-09-15] MEDS: DOCUSATE SODIUM 100 MG CAP PO SCH ×2 (09:00→21:00)
--- NOTE | 2017-09-15 09:13 | CONS ---
Date/Time of Note Date/Time of Note DATE: 09/15/17 TIME: 09:12 Consult Date/Type/Reason Admit Date/Time Sep 08, 2017 at 20:43 Subjective She reported overall pain significantly improved Objective sba/cga ambulation Vital Signs Date Time Temp Pulse Resp B/P Pulse Ox O2 Delivery O2 Flow Rate FiO2 09/15/17 02:00 98.0 79 18 100/59 99 09/13/17 04:28 Room Air Intake and Output 09/14/17 09/14/17 09/15/17 15:00 23:00 07:00 Output Total 600 ml 950 ml Balance -600 ml -950 ml Results/Medications Result Diagram: 09/11/1762609/11/17626 Medications Current Medications Tramadol HCl (Ultram) 50 mg Q6H PRN PO PAIN Last administered on 09/14/17 20: 18; Admin Dose 50 MG; Start 09/08/17 at 23:45 Alprazolam (Xanax) 0.5 mg Q6H PRN PO ANXIETY; Start 09/08/17 at 23:45 Ferrous Sulfate (Ferrous Sulfate (Ec)) 325 mg DAILY PO Last administered on 10:36; Admin Dose 325 MG; Start 09/09/17 at 09:00 Clonidine (Catapres) 0.1 mg BID PO Last administered on 09/14/17 10:38; Admin Dose 0.1 MG; Start 09/08/17 at 23:45 Docusate Sodium (Colace) 100 mg BID PO Last administered on 09/13/17 09:32; Admin Dose 100 MG; Start 09/09/17 at 09:00 Senna (Senokot) 1 tab HS PO ; Start 09/09/17 at 21:00 Acetaminophen (Tylenol Tab) 650 mg Q4H PRN PO PAIN Last administered on 10:36; Admin Dose 650 MG; Start 09/08/17 at 23:45 Bisacodyl (Dulcolax Supp) 10 mg DAILY PRN [place] CONSTIPATION; Start 09/08/17 at 23:45 Magnesium Hydroxide (Milk Of Mag) 30 ml BID PRN PO CONSTIPATION; Start at 23:45 Lactulose (Enulose) 20 gm DAILY PRN PO CONSTIPATION; Start 09/08/17 at 23:45 Losartan Potassium (Cozaar) 100 mg DAILY PO Last administered on 09/14/17 10: 37; Admin Dose 100 MG; Start 09/09/17 at 10:00 Hydrochlorothiazide (Hydrochlorothiazide) 12.5 mg DAILY PO Last administered on 09/14/17 10:36; Admin Dose 12.5 MG; Start 09/09/17 at 10:00 Non-Formulary Medication 1 ea Q48H INH Last administered on 09/14/17 09:00; Admin Dose 1 EA; Start 09/10/17 at 09:00 [facility] This patient watkins... PRN PRN XX WOUND CARE; Start 09/09/17 at 22:00 Famotidine (Pepcid) 20 mg BID PO Last administered on 09/14/17 20:18; Admin Dose 20 MG; Start 09/10/17 at 21:00 Zolpidem Tartrate (Ambien) 5 mg HS PRN PO INSOMNIA Last administered on 22:59; Admin Dose 5 MG; Start 09/11/17 at 20:00 Lidocaine (Lidoderm) 1 patch DAILY TD Last administered on 09/14/17 10:39; Admin Dose 1 PATCH; Start 09/13/17 at 09:00 Gabapentin (Neurontin) 100 mg TID PO Last administered on 09/14/17 20:18; Admin Dose 100 MG; Start 09/13/17 at 21:00 Baclofen (Lioresal) 10 mg QHS PO Last administered on 09/14/17 20:18; Admin Dose 10 MG; Start 09/14/17 at 21:00 Assessment/Plan Additional Assessment/Plan Rehabilitation -orthopedic disorder with lumbar spondylolisthesis and radiculopathy, status post laminectomy and fusion. Continue current activities. Progressing well. Bilateral rotator cuff injuries. History of bilateral carpal tunnel syndrome. History of left elbow surgery. History of multiple left knee surgeries. Hypertension. Anemia. Asthma. Gluteal decubitus ulcer-improved LIVIA HERZOG MD Sep 15, 2017 09:13
[2017-09-15] MEDS: FERROUS SULFATE (EC) 325 MG TAB PO SCH (09:16)
[2017-09-15] MEDS: GABAPENTIN 100 MG CAP PO SCH ×3 (09:18→21:38)
[2017-09-15] MEDS: HYDROCHLOROTHIAZIDE 12.5 MG CAP PO SCH (09:18)
[2017-09-15] MEDS: FAMOTIDINE 20 MG TAB PO SCH ×2 (09:18→21:39)
[2017-09-15] MEDS: LOSARTAN 50 MG TAB PO SCH (09:18)
[2017-09-15] MEDS: LIDOCAINE 5% PATCH TD SCH (09:19)
--- NOTE | 2017-09-15 09:33 | PN ---
DATE: 09/15/2017 SUBJECTIVE: The patient is stable, no acute events overnight. OBJECTIVE: VITAL SIGNS: Blood pressure is 115/64, pulse 88, respiration 18, temperature 98.1. HEENT: Head is normocephalic. NECK: Supple. HEART: Regular rate. LUNGS: Show diminished breath sounds at the base. ABDOMEN: Soft, nontender to palpation without rebound or guarding. EXTREMITIES: Negative for clubbing, cyanosis, no edema. DERMATOLOGIC: No rashes. MUSCULOSKELETAL: No joint effusions. NEUROLOGIC: No change in exam. MEDICATIONS: The patient's medications have been reviewed. LABORATORY DATA: Has been reviewed. ASSESSMENT AND PLAN: 1. Chronic back pain with radiculopathy. The patient is currently stable. Continue Neurontin, up titrate as needed. Continue physical therapy. 2. Hypertension. Continue current blood pressure regimen. 3. Asthma, controlled. 4. Anxiety disorder. Continue Xanax. 5. History of arthritis. Continue physical therapy. 6. Anemia. Monitor hemoglobin and hematocrit levels. 7. Hypernatremia. Continue to encourage free water intake. 8. Chronic pain syndrome. Continue current pain regimen of Neurontin and Lidocaine patch. 9. Gastrointestinal and deep venous thrombosis prophylaxis. Dictated By: SILVERIO MUNSON/JESSICA Conf#: [id number] DID#: [id number]
[2017-09-15 10:00] VITALS: BP 120/70; PULSE 78
[2017-09-15 14:00] VITALS: BP 100/59; RESP 18
[2017-09-15] MEDS: traMADol 50 MG TAB PO PRN (15:46)
[2017-09-15 20:00] VITALS: BP 106/62; RESP 18
[2017-09-15] MEDS: SENNA TAB PO SCH (21:00)
[2017-09-15] MEDS: BACLOFEN 10 MG TAB PO SCH (21:38)
[2017-09-15] MEDS: ZOLPIDEM 5 MG TAB PO PRN (23:05)
[2017-09-16 02:08] VITALS: BP 110/65; RESP 18
[2017-09-16] MEDS: LIDOCAINE 5% PATCH TD SCH (08:49)
[2017-09-16] MEDS: FAMOTIDINE 20 MG TAB PO SCH ×2 (08:50→21:21)
[2017-09-16] MEDS: GABAPENTIN 100 MG CAP PO SCH ×3 (08:50→21:21)
[2017-09-16] MEDS: DOCUSATE SODIUM 100 MG CAP PO SCH ×2 (08:50→21:00)
[2017-09-16] MEDS: FERROUS SULFATE (EC) 325 MG TAB PO SCH (08:50)
[2017-09-16] MEDS: HYDROCHLOROTHIAZIDE 12.5 MG CAP PO SCH (08:53)
[2017-09-16] MEDS: LOSARTAN 50 MG TAB PO SCH (08:56)
[2017-09-16] MEDS: BALSAM PERU/CASTOR OIL 60 GM TUBE TOP SCH ×2 (08:57→21:00)
[2017-09-16] MEDS: FLUTICASONE FUROATE INH SCH (09:00)
[2017-09-16] MEDS: VILANTEROL INH SCH (09:00)
--- NOTE | 2017-09-16 10:12 | CONS ---
Date/Time of Note Date/Time of Note DATE: 09/16/17 TIME: 10:10 Consult Date/Type/Reason Admit Date/Time Sep 08, 2017 at 20:43 Subjective Better with Neurontin Objective sba ambulation Vital Signs Date Time Temp Pulse Resp B/P Pulse Ox O2 Delivery O2 Flow Rate FiO2 09/16/17 02:08 98.3 85 18 110/65 95 09/13/17 04:28 Room Air Intake and Output 09/15/17 09/15/17 09/16/17 14:59 22:59 06:59 Intake Total 840 ml 1150 ml Output Total 750 ml Balance 840 ml 400 ml Results/Medications Medications Current Medications Tramadol HCl (Ultram) 50 mg Q6H PRN PO PAIN Last administered on 09/15/17 15: 46; Admin Dose 50 MG; Start 09/08/17 at 23:45 Alprazolam (Xanax) 0.5 mg Q6H PRN PO ANXIETY Last administered on 09/15/17 10 :10; Admin Dose 0.5 MG; Start 09/08/17 at 23:45 Ferrous Sulfate (Ferrous Sulfate (Ec)) 325 mg DAILY PO Last administered on 08:50; Admin Dose 325 MG; Start 09/09/17 at 09:00 Clonidine (Catapres) 0.1 mg BID PO Last administered on 09/15/17 09:23; Admin Dose 0.1 MG; Start 09/08/17 at 23:45 Docusate Sodium (Colace) 100 mg BID PO Last administered on 09/16/17 08:50; Admin Dose 100 MG; Start 09/09/17 at 09:00 Senna (Senokot) 1 tab HS PO ; Start 09/09/17 at 21:00 Acetaminophen (Tylenol Tab) 650 mg Q4H PRN PO PAIN Last administered on 10:36; Admin Dose 650 MG; Start 09/08/17 at 23:45 Bisacodyl (Dulcolax Supp) 10 mg DAILY PRN [place] CONSTIPATION; Start 09/08/17 at 23:45 Magnesium Hydroxide (Milk Of Mag) 30 ml BID PRN PO CONSTIPATION; Start at 23:45 Lactulose (Enulose) 20 gm DAILY PRN PO CONSTIPATION; Start 09/08/17 at 23:45 Losartan Potassium (Cozaar) 100 mg DAILY PO Last administered on 09/16/17 08: 56; Admin Dose 100 MG; Start 09/09/17 at 10:00 Hydrochlorothiazide (Hydrochlorothiazide) 12.5 mg DAILY PO Last administered on 09/16/17 08:53; Admin Dose 12.5 MG; Start 09/09/17 at 10:00 Non-Formulary Medication 1 ea Q48H INH Last administered on 09/14/17 09:00; Admin Dose 1 EA; Start 09/10/17 at 09:00 [facility] This patient watkins... PRN PRN XX WOUND CARE; Start 09/09/17 at 22:00 Famotidine (Pepcid) 20 mg BID PO Last administered on 09/16/17 08:50; Admin Dose 20 MG; Start 09/10/17 at 21:00 Zolpidem Tartrate (Ambien) 5 mg HS PRN PO INSOMNIA Last administered on 23:05; Admin Dose 5 MG; Start 09/11/17 at 20:00 Lidocaine (Lidoderm) 1 patch DAILY TD Last administered on 09/16/17 08:49; Admin Dose 1 PATCH; Start 09/13/17 at 09:00 Gabapentin (Neurontin) 100 mg TID PO Last administered on 09/16/17 08:50; Admin Dose 100 MG; Start 09/13/17 at 21:00 Baclofen (Lioresal) 10 mg QHS PO Last administered on 09/15/17 21:38; Admin Dose 10 MG; Start 09/14/17 at 21:00 Assessment/Plan Additional Assessment/Plan rehab- Lumbar Spondylolisthesis s/p lami/fusion Steady gains with rehabprogram Pain-improving HTN Anemia assthma integ- improving LIVIA HERZOG MD Sep 16, 2017 10:12
--- NOTE | 2017-09-16 13:41 | PN ---
DATE: 09/16/2017 SUBJECTIVE: The patient is doing well, states the pain is improving. No other events noted. OBJECTIVE: VITAL SIGNS: Blood pressure is 110/65, respirations 18, pulse 85, temperature 98.3. HEENT: Head is normocephalic. NECK: Supple. HEART: Regular rate. LUNGS: Show diminished breath sounds at base. ABDOMEN: Soft, nontender to palpation. No rebound or guarding. EXTREMITIES: Negative for clubbing, cyanosis, no edema. DERMATOLOGIC: No rashes. MUSCULOSKELETAL: No joint effusions. NEUROLOGIC: No change in exam. MEDICATIONS: The patient's medications have been reviewed. LABORATORY DATA: Has been reviewed. ASSESSMENT AND PLAN: 1. Chronic back pain with radiculopathy. The patient is currently stable. Continue Neurontin. Wi ll up titrate slowly. 2. Hypertension. Continue current blood pressure regimen. 3. Asthma, controlled. 4. Anxiety disorder. Continue Xanax. 5. History of arthritis. 6. Anemia. Continue to monitor hemoglobin and hematocrit levels. 7. Hypernatremia. Continue encourage free water intake. 8. Chronic pain syndrome. Continue current pain regimen of Neurontin and Lidocaine patch as stated above. 9. Deep venous thrombosis prophylaxis. Dictated By: SILVERIO MUNSON/JESSICA Conf#: [id number] DID#: [id number]
[2017-09-16 14:00] VITALS: BP 106/61; RESP 18
[2017-09-16 19:33] VITALS: BP 122/59; RESP 18
[2017-09-16] MEDS: SENNA TAB PO SCH (21:00)
[2017-09-16] MEDS: BACLOFEN 10 MG TAB PO SCH (21:20)
[2017-09-16] MEDS: ZOLPIDEM 5 MG TAB PO PRN (23:08)
[2017-09-17 02:32] VITALS: BP 136/75; RESP 19
[2017-09-17] MEDS: traMADol 50 MG TAB PO PRN (06:33)
[2017-09-17 07:30] VITALS: BP 131/80; RESP 20
--- NOTE | 2017-09-17 08:32 | CONS ---
Date/Time of Note Date/Time of Note DATE: 09/17/17 TIME: 08:31 Consult Date/Type/Reason Admit Date/Time Sep 08, 2017 at 20:43 Subjective Doing very well feels pain is under good control Objective Supervised ambulation 200 feet Vital Signs Date Time Temp Pulse Resp B/P Pulse Ox O2 Delivery O2 Flow Rate FiO2 09/17/17 02:32 98.2 89 19 136/75 100 Intake and Output 09/16/17 09/16/17 09/17/17 15:00 23:00 07:00 Intake Total 500 ml 2400 ml 360 ml Output Total 2101 ml Balance 500 ml 299 ml 360 ml Results/Medications Medications Current Medications Tramadol HCl (Ultram) 50 mg Q6H PRN PO PAIN Last administered on 09/17/17 06: 33; Admin Dose 50 MG; Start 09/08/17 at 23:45 Alprazolam (Xanax) 0.5 mg Q6H PRN PO ANXIETY Last administered on 09/15/17 10 :10; Admin Dose 0.5 MG; Start 09/08/17 at 23:45 Ferrous Sulfate (Ferrous Sulfate (Ec)) 325 mg DAILY PO Last administered on 08:50; Admin Dose 325 MG; Start 09/09/17 at 09:00 Clonidine (Catapres) 0.1 mg BID PO Last administered on 09/15/17 09:23; Admin Dose 0.1 MG; Start 09/08/17 at 23:45 Docusate Sodium (Colace) 100 mg BID PO Last administered on 09/16/17 08:50; Admin Dose 100 MG; Start 09/09/17 at 09:00 Senna (Senokot) 1 tab HS PO ; Start 09/09/17 at 21:00 Acetaminophen (Tylenol Tab) 650 mg Q4H PRN PO PAIN Last administered on 10:36; Admin Dose 650 MG; Start 09/08/17 at 23:45 Bisacodyl (Dulcolax Supp) 10 mg DAILY PRN [place] CONSTIPATION; Start 09/08/17 at 23:45 Magnesium Hydroxide (Milk Of Mag) 30 ml BID PRN PO CONSTIPATION; Start at 23:45 Lactulose (Enulose) 20 gm DAILY PRN PO CONSTIPATION; Start 09/08/17 at 23:45 Losartan Potassium (Cozaar) 100 mg DAILY PO Last administered on 09/16/17 08: 56; Admin Dose 100 MG; Start 09/09/17 at 10:00 Hydrochlorothiazide (Hydrochlorothiazide) 12.5 mg DAILY PO Last administered on 09/16/17 08:53; Admin Dose 12.5 MG; Start 09/09/17 at 10:00 Non-Formulary Medication 1 ea Q48H INH Last administered on 09/16/17 09:00; Admin Dose 1 EA; Start 09/10/17 at 09:00 [facility] This patient watkins... PRN PRN XX WOUND CARE; Start 09/09/17 at 22:00 Famotidine (Pepcid) 20 mg BID PO Last administered on 09/16/17 21:21; Admin Dose 20 MG; Start 09/10/17 at 21:00 Zolpidem Tartrate (Ambien) 5 mg HS PRN PO INSOMNIA Last administered on 23:08; Admin Dose 5 MG; Start 09/11/17 at 20:00 Lidocaine (Lidoderm) 1 patch DAILY TD Last administered on 09/16/17 08:49; Admin Dose 1 PATCH; Start 09/13/17 at 09:00 Baclofen (Lioresal) 10 mg QHS PO Last administered on 09/16/17 21:20; Admin Dose 10 MG; Start 09/14/17 at 21:00 Gabapentin (Neurontin) 200 mg TID PO Last administered on 09/16/17 21:21; Admin Dose 200 MG; Start 09/16/17 at 13:00 Assessment/Plan Additional Assessment/Plan rehab- Lumbar Spondylolisthesis s/p lami/fusion Excellent progress, tinea rehab program Pain-improving HTN Anemia assthma integ- improving LIVIA HERZOG MD Sep 17, 2017 08:32
[2017-09-17] MEDS: LIDOCAINE 5% PATCH TD SCH (09:00)
[2017-09-17] MEDS: BALSAM PERU/CASTOR OIL 60 GM TUBE TOP SCH ×2 (09:00→20:07)
--- NOTE | 2017-09-17 09:47 | RADRPT ---
PROCEDURE: US bilateral lower extremity veins. CLINICAL INDICATION: Bilateral leg pain and swelling. TECHNIQUE: Multiple longitudinal and transverse images of the bilateral lower extremity veins were obtained with green scale and color Doppler imaging. The common femoral vein, femoral vein, and popl iteal vein were evaluated. 2D grayscale measurements with compression sonography, color Doppler, and pulsed Doppler with augmentation. COMPARISON: No prior studies are available for comparison. FINDINGS: The bilateral common femoral, femoral and popliteal veins are normally compressible throughout. Col or flow demonstrates normal filling of the vessels. Normal waveforms are visualized and there is no rmal response to augmentation. IMPRESSION: 1. No evidence of deep vein thrombosis involving either lower extremity. RPTAT: QQ .Julio Johns MD, MD Date Time Electronically viewed and signed by .Julio Johns MD, on 09/17/2017 09:47 .R/
[2017-09-17] MEDS: LOSARTAN 50 MG TAB PO SCH (10:38)
[2017-09-17] MEDS: GABAPENTIN 100 MG CAP PO SCH ×4 (10:38→20:06)
[2017-09-17] MEDS: HYDROCHLOROTHIAZIDE 12.5 MG CAP PO SCH (10:39)
[2017-09-17] MEDS: DOCUSATE SODIUM 100 MG CAP PO SCH ×2 (10:39→20:07)
[2017-09-17] MEDS: FAMOTIDINE 20 MG TAB PO SCH ×2 (10:39→20:07)
[2017-09-17] MEDS: FERROUS SULFATE (EC) 325 MG TAB PO SCH (10:40)
--- NOTE | 2017-09-17 13:09 | PN ---
DATE: 09/17/2017 SUBJECTIVE: The patient is stable. No events overnight. No fevers, chills, nausea, vomiting. OBJECTIVE: VITAL SIGNS: Blood pressure is 131/80, temperature 97.4, pulse is 88, respiration is 20. HEENT: Head is normocephalic. NECK: Supple. HEART: Regular rate. LUNGS: Show diminished breath sounds at base. ABDOMEN: Soft, nontender to palpation. No rebound or guarding. EXTREMITIES: Negative for clubbing, cyanosis, edema. DERMATOLOGIC: No rashes. MUSCULOSKELETAL: No joint effusions. NEUROLOGIC: No change in exam. MEDICATIONS: The patient's medications have been reviewed. LABORATORY DATA: Has been reviewed. ASSESSMENT AND PLAN: 1. Chronic back pain with radiculopathy. The patient is currently stable. Continue Neurontin, whi ch is improving patient's underlying pain. 2. Hypertension. Continue current blood pressure regimen. 3. Asthma, controlled. 4. Anxiety disorder. Continue Xanax. 5. Anemia. Monitor hemoglobin and hematocrit levels. 6. Hypernatremia. Continue to encourage free water intake. 7. Neuropathy, chronic pain syndrome. Continue Neurontin, lidocaine patch. 8. Gastrointestinal and deep venous thrombosis prophylaxis. Continue sequential leg squeezers and Pepcid. Dictated By: SILVERIO MUNSON/NTS Conf#: [id number] DID#: [id number] CC: LIVIA HERZOG MD;*End*
[2017-09-17 14:00] VITALS: BP 100/60; RESP 18
[2017-09-17 20:00] VITALS: BP 108/62; RESP 18
[2017-09-17] MEDS: BACLOFEN 10 MG TAB PO SCH (20:06)
[2017-09-17] MEDS: SENNA TAB PO SCH (20:07)
[2017-09-17] MEDS: ZOLPIDEM 5 MG TAB PO PRN (22:57)
[2017-09-18 02:00] VITALS: BP 110/65; RESP 18
[2017-09-18] MEDS: traMADol 50 MG TAB PO PRN (06:44)
[2017-09-18 07:30] VITALS: BP 127/71; RESP 18
[2017-09-18 08:00] VITALS: BP 127/71
[2017-09-18] MEDS: LIDOCAINE 5% PATCH TD SCH (08:21)
[2017-09-18] MEDS: DOCUSATE SODIUM 100 MG CAP PO SCH ×2 (08:22→20:36)
[2017-09-18] MEDS: GABAPENTIN 100 MG CAP PO SCH ×3 (08:22→20:36)
[2017-09-18] MEDS: LOSARTAN 50 MG TAB PO SCH (08:23)
[2017-09-18] MEDS: FERROUS SULFATE (EC) 325 MG TAB PO SCH (08:23)
[2017-09-18] MEDS: HYDROCHLOROTHIAZIDE 12.5 MG CAP PO SCH (08:23)
[2017-09-18] MEDS: FAMOTIDINE 20 MG TAB PO SCH ×2 (08:23→20:35)
[2017-09-18] MEDS: VILANTEROL INH SCH (08:24)
[2017-09-18] MEDS: FLUTICASONE FUROATE INH SCH (08:24)
[2017-09-18] MEDS: ACETAMINOPHEN 325 MG TAB PO PRN (08:27)
--- NOTE | 2017-09-18 08:44 | PN ---
DATE: 09/18/2017 SUBJECTIVE: The patient is stable. No events overnight. No fevers, chills, nausea, vomiting. OBJECTIVE: VITAL SIGNS: Blood pressure is 131/80, pulse 88, respirations 20. HEENT: Head is normocephalic. NECK: Supple. HEART: Regular rate. LUNGS: Show diminished breath sounds at the base. ABDOMEN: Soft, nontender to palpation. No rebound or guarding. EXTREMITIES: Negative for clubbing, cyanosis. No edema. DERMATOLOGIC: No rashes. MUSCULOSKELETAL: No joint effusions. NEUROLOGIC: No change in exam. MEDICATIONS: The patient's medications have been reviewed. LABORATORY DATA: Has been reviewed. ASSESSMENT AND PLAN: 1. Chronic back pain with radiculopathy. The patient is status post L3-S1 laminectomy and fusion. The patient is currently stable. Continue physical therapy and occupational therapy. 2. Hypertension. Blood pressure controlled. 3. Asthma, well controlled. 4. Anxiety disorder. Continue Xanax. 5. Arthritis. Continue physical therapy. 6. Anemia. Monitor hemoglobin and hematocrit levels. Continue ferrous sulfate. 7. Hypernatremia. Continue to increase free water intake. 8. Neuropathy, chronic pain syndrome. Continue lidocaine patch. Continue Neurontin. 9. Gastrointestinal and deep venous thrombosis prophylaxis. Continue proton pump inhibitor and seq uential leg squeezers. Dictated By: SILVERIO MUNSON/NTS Conf#: [id number] DID#: [id number] CC: LIVIA HERZOG MD;*EndCC*
[2017-09-18] MEDS: BALSAM PERU/CASTOR OIL 60 GM TUBE TOP SCH ×2 (09:00→20:37)
--- NOTE | 2017-09-18 10:14 | CONS ---
Date/Time of Note Date/Time of Note DATE: 09/18/17 TIME: 10:14 Consult Date/Type/Reason Admit Date/Time Sep 08, 2017 at 20:43 Subjective reports pain under good control Objective S/NY ambulation Vital Signs Date Time Temp Pulse Resp B/P Pulse Ox O2 Delivery O2 Flow Rate FiO2 09/18/17 08:00 98.1 127/71 09/18/17 07:30 82 18 100 Intake and Output 09/17/17 09/17/17 09/18/17 14:59 22:59 06:59 Intake Total 1100 ml 990 ml Output Total 420 ml Balance 680 ml 990 ml Results/Medications Medications Current Medications Tramadol HCl (Ultram) 50 mg Q6H PRN PO PAIN Last administered on 09/18/17 06: 44; Admin Dose 50 MG; Start 09/08/17 at 23:45 Alprazolam (Xanax) 0.5 mg Q6H PRN PO ANXIETY Last administered on 09/15/17 10 :10; Admin Dose 0.5 MG; Start 09/08/17 at 23:45 Ferrous Sulfate (Ferrous Sulfate (Ec)) 325 mg DAILY PO Last administered on 08:23; Admin Dose 325 MG; Start 09/09/17 at 09:00 Clonidine (Catapres) 0.1 mg BID PO Last administered on 09/18/17 08:22; Admin Dose 0.1 MG; Start 09/08/17 at 23:45 Docusate Sodium (Colace) 100 mg BID PO Last administered on 09/18/17 08:22; Admin Dose 100 MG; Start 09/09/17 at 09:00 Senna (Senokot) 1 tab HS PO Last administered on 09/17/17 20:07; Admin Dose 1 TAB; Start 09/09/17 at 21:00 Acetaminophen (Tylenol Tab) 650 mg Q4H PRN PO PAIN Last administered on 08:27; Admin Dose 650 MG; Start 09/08/17 at 23:45 Bisacodyl (Dulcolax Supp) 10 mg DAILY PRN CO CONSTIPATION; Start 09/08/17 at 23:45 Magnesium Hydroxide (Milk Of Mag) 30 ml BID PRN PO CONSTIPATION; Start at 23:45 Lactulose (Enulose) 20 gm DAILY PRN PO CONSTIPATION; Start 09/08/17 at 23:45 Losartan Potassium (Cozaar) 100 mg DAILY PO Last administered on 09/18/17 08: 23; Admin Dose 100 MG; Start 09/09/17 at 10:00 Hydrochlorothiazide (Hydrochlorothiazide) 12.5 mg DAILY PO Last administered on 09/18/17 08:23; Admin Dose 12.5 MG; Start 09/09/17 at 10:00 Non-Formulary Medication 1 ea Q48H INH Last administered on 09/18/17 08:24; Admin Dose 1 EA; Start 09/10/17 at 09:00 Miscellaneous Information (Pending [facility] Order For Wound Care) This patient watkins... PRN PRN XX WOUND CARE; Start 09/09/17 at 22:00 Famotidine (Pepcid) 20 mg BID PO Last administered on 09/18/17 08:23; Admin Dose 20 MG; Start 09/10/17 at 21:00 Zolpidem Tartrate (Ambien) 5 mg HS PRN PO INSOMNIA Last administered on 22:57; Admin Dose 5 MG; Start 09/11/17 at 20:00 Lidocaine (Lidoderm) 1 patch DAILY TD Last administered on 09/18/17 08:21; Admin Dose 1 PATCH; Start 09/13/17 at 09:00 Gabapentin (Neurontin) 200 mg TID PO Last administered on 09/18/17 08:22; Admin Dose 200 MG; Start 09/16/17 at 13:00 Baclofen (Lioresal) 20 mg HS PO Last administered on 09/17/17 20:06; Admin Dose 20 MG; Start 09/17/17 at 21:00 Assessment/Plan Additional Assessment/Plan rehab- Lumbar Spondylolisthesis and radic, s/p Lami; B RTC; B CTS, DJD Excellent progress. Anticpate home Wednesday Pain- under good control Integ- healed LIVIA HERZOG MD Sep 18, 2017 10:14
[2017-09-18 20:02] VITALS: BP 126/71; RESP 18
[2017-09-18] MEDS: ZOLPIDEM 5 MG TAB PO PRN (20:34)
[2017-09-18] MEDS: BACLOFEN 10 MG TAB PO SCH (20:35)
[2017-09-18] MEDS: SENNA TAB PO SCH (20:36)
[2017-09-19] MEDS: traMADol 50 MG TAB PO PRN (06:00)
[2017-09-19 08:00] VITALS: BP 123/75; RESP 18
[2017-09-19] MEDS: DOCUSATE SODIUM 100 MG CAP PO SCH ×2 (08:42→20:17)
[2017-09-19] MEDS: FERROUS SULFATE (EC) 325 MG TAB PO SCH (08:42)
[2017-09-19] MEDS: FAMOTIDINE 20 MG TAB PO SCH ×2 (08:42→20:16)
[2017-09-19] MEDS: GABAPENTIN 100 MG CAP PO SCH ×3 (08:43→20:16)
[2017-09-19] MEDS: LOSARTAN 50 MG TAB PO SCH (08:43)
[2017-09-19] MEDS: HYDROCHLOROTHIAZIDE 12.5 MG CAP PO SCH (08:43)
[2017-09-19] MEDS: LIDOCAINE 5% PATCH TD SCH (08:44)
[2017-09-19] MEDS: BALSAM PERU/CASTOR OIL 60 GM TUBE TOP SCH ×2 (09:00→20:17)
--- NOTE | 2017-09-19 10:26 | PN ---
DATE: 09/19/2017 SUBJECTIVE: The patient is stable. No events overnight. No fevers, chills, nausea, vomiting. PHYSICAL EXAMINATION: OBJECTIVE: VITAL SIGNS: Blood pressure is 127/71, temperature 98.7, pulse 80, respiration 18. HEENT: Head is normocephalic. NECK: Supple. HEART: Regular rate. LUNGS: Show diminished breath sounds at the base. ABDOMEN: Soft, nontender to palpation. No rebound or guarding. EXTREMITIES: Negative for clubbing, cyanosis, edema. DERMATOLOGIC: No rashes. MUSCULOSKELETAL: No joint effusions. NEUROLOGIC: No change in exam. MEDICATIONS: The patient's medications have been reviewed. LABORATORY DATA: Has been reviewed. No new labs ASSESSMENT AND PLAN: 1. Chronic back pain with radiculopathy. The patient is status post L3-S1 laminectomy and fusion. The patient is currently stable. Continue physical therapy. 2. Hypertension. Continue current blood pressure regimen. 3. Asthma well controlled. 4. Anxiety disorder. Continue Xanax. 5. Neuropathy. Continue lidocaine patch. Continue Neurontin. Pain is improving. 6. Arthritis. Continue physical therapy. 7. Anemia. Monitor hemoglobin and hematocrit levels. Continue ferrous sulfate. 8. Hypernatremia. Continue to encourage free water intake. 9. Gastrointestinal and deep venous thrombosis prophylaxis. Continue proton pump inhibitor and seq uential leg squeezers. Dictated By: SILVERIO MUNSON/JESSICA Conf#: [id number] DID#: [id number]
[2017-09-19 19:38] VITALS: BP 118/61; RESP 18
[2017-09-19] MEDS: ZOLPIDEM 5 MG TAB PO PRN (20:16)
[2017-09-19] MEDS: BACLOFEN 10 MG TAB PO SCH (20:16)
[2017-09-19] MEDS: SENNA TAB PO SCH (20:17)
[2017-09-20 04:00] VITALS: BP 113/68; PULSE 84; RESP 16
[2017-09-20] MEDS: traMADol 50 MG TAB PO PRN (06:28)
[2017-09-20 08:00] VITALS: BP 135/79; PULSE 85; RESP 20
[2017-09-20] MEDS: LOSARTAN 50 MG TAB PO SCH (08:45)
[2017-09-20] MEDS: FERROUS SULFATE (EC) 325 MG TAB PO SCH (08:46)
[2017-09-20] MEDS: HYDROCHLOROTHIAZIDE 12.5 MG CAP PO SCH (08:46)
[2017-09-20] MEDS: GABAPENTIN 100 MG CAP PO SCH ×2 (08:46→13:07)
[2017-09-20] MEDS: FAMOTIDINE 20 MG TAB PO SCH (08:46)
[2017-09-20] MEDS: LIDOCAINE 5% PATCH TD SCH (08:47)
[2017-09-20] MEDS: BALSAM PERU/CASTOR OIL 60 GM TUBE TOP SCH (08:54)
[2017-09-20] MEDS: DOCUSATE SODIUM 100 MG CAP PO SCH (09:00)
[2017-09-20] MEDS: VILANTEROL INH SCH (09:16)
[2017-09-20] MEDS: FLUTICASONE FUROATE INH SCH (09:16)
--- NOTE | 2017-09-20 10:23 | PN ---
DATE: 09/20/2017 SUBJECTIVE: The patient is stable. No events overnight. OBJECTIVE: VITAL SIGNS: Blood pressure is 123/75, temperature 98.7, pulse 86, respiration 18. HEENT: Head is normocephalic. NECK: Supple. HEART: Regular rate. LUNGS: Show diminished breath sounds at the base. ABDOMEN: Soft, nontender to palpation. No rebound or guarding. EXTREMITIES: Negative for clubbing, cyanosis. No edema. DERMATOLOGIC: No rashes. MUSCULOSKELETAL: No joint effusions. NEUROLOGIC: No change in exam. MEDICATIONS: The patient's medications have been reviewed. LABORATORY DATA: Has been reviewed. ASSESSMENT AND PLAN: 1. Chronic back pain with radiculopathy. The patient is status post L3-S1 laminectomy with fusion. Patient is currently stable. Continue physical therapy. 2. Hypertension. Continue current blood pressure regimen. 3. Anxiety disorder. Continue Xanax. 4. Neuropathy improving. Continue Neurontin. 5. Arthritis. Continue physical therapy. 6. Anemia. Monitor hemoglobin and hematocrit levels. 7. Hypernatremia. Continue to encourage free water intake. 8. Gastrointestinal and deep venous thrombosis prophylaxis. Continue proton pump inhibitor and seq uential leg squeezers. Dictated By: SILVERIO MUNSON/JESSICA Conf#: [id number] DID#: [id number]
== END 2017-09-20 13:56 | disposition home health service (06) | DRG 560 ==
LOC: VRC 20:43
PROVIDERS: ADMIT Physical Medicine & Rehabilitation; ATTEND Internal Medicine Nephrology
PROC: F07Z5ZZ Bed Mobility Treatment (ICD-10-PCS; principal; 2017-09-08)
PROC: F07Z9ZZ Gait Training/Functional Ambulation Treatment (ICD-10-PCS; 2017-09-08)
PROC: F07Z8ZZ Transfer Training Treatment (ICD-10-PCS; 2017-09-08)
PROC: F08Z2ZZ Grooming/Personal Hygiene Treatment (ICD-10-PCS; 2017-09-08)
PROC: F08Z1ZZ Dressing Techniques Treatment (ICD-10-PCS; 2017-09-08)
DX: Z47.89 Encounter for other orthopedic aftercare (principal); E87.0 Hyperosmolality and hypernatremia; L89.312 Pressure ulcer of right buttock, stage 2; G89.4 Chronic pain syndrome; G62.9 Polyneuropathy, unspecified; M54.16 Radiculopathy, lumbar region; Z98.1 Arthrodesis status; Z74.09 Other reduced mobility; D72.819 Decreased white blood cell count, unspecified; D50.9 Iron deficiency anemia, unspecified; F41.9 Anxiety disorder, unspecified; I10 Essential (primary) hypertension; J45.909 Unspecified asthma, uncomplicated; M15.9 Polyosteoarthritis, unspecified
CPT/HCPCS: 80048; 80053; 81001; 81003; 82728; 83540; 83735; 84100; 85025; 87081; 87086; 90686; 93970; 97110; 97112; 97116; 97150; 97163; 97166; 97530; 97535